=== PATIENT | male | born 1965 | race Two or more races ===

== ENCOUNTER 2023-09-06 02:54 | Emergency (ER) | payer OTHER ==
[~2023-09-06] VITALS: Ht 180.3 cm; Wt 103.3 kg
[2023-09-06 03:15] VITALS: BP 135/61; PULSE 67; RESP 14; TEMP 98.2
[2023-09-06] MEDS ORDERED: IBUP-1455 PO (04:53)
[2023-09-06 05:12] VITALS: O2SAT 98
== END 2023-09-06 05:21 | disposition home or self-care (01) ==
LOC: ER 02:54
DX: R51.9 Headache, unspecified (principal)